=== PATIENT | female | born 1970 | race Caucasian/White ===

== ENCOUNTER → 2017-03-20 | Outpatient (CLI) | payer OTHER ==
[~2017-03-20] MED LIST: ADVAIR 2501 DISK W/D PO; ALDARA TD; AMOXICILLIN PO; AMOXICILLIN500 M1 PO; ASPIRIN81 M2 PO; ASPIRIN81 MG; ASPIRIN81 MG PO; CARVEDILOL25 MG PO; CARVEDILOL6.25 MG PO; CLOPIDOGREL75 MG PO; COMBIVENT U/D3 M2; COMBIVENT U/D3 M2 INH; COREG12.5 MG; COREG6.25 MG PO; COZAAR25 MG; DULERA 100 MCG/13 GM; FLONASE ALLERG9.9 ML; FLONASE16 GM; IMDUR-ER30 M2 PO; ISORDIL PO; LIPITOR20 MG; LIPITOR40 MG PO; NIACIN ER500 MG PO; NITROGLYCERIN0.4 MG SL; NITROSTAT0.4 MG SL; NO MEDICATIONS; OMEPRAZOLE20 M2; PHENERGAN W/CO120 ML PO; PLAVIX; PLAVIX PO; PREDNISONE PO; RANEXA500 MG PO; VICODIN 5/500 T1 TAB PO; VOLTAREN75 MG PO; ZESTRIL10 M1 PO; ZESTRIL2.5 MG PO; ZYRTEC10 M1
--- NOTE | ~2017-03-20 | US136 ---
[facility] A Service of [facility] & [facility] RADIOLOGY TEXT RESULTS PATIENT: ABHAY CANO LOCATION: CNIV : 68 UNIT #: [id number] AGE: [address]: Larry Magana MD SEX: F ORDER DR: [id number] [facility] [address] [place], [place] [address] [id number] O MR#: [id number] Acc #: [id number] NAME: ABHAY CANO : 1970 SEX: F STUDY DATE/TIME: 03/20/2017 11:41 UNIT: CNIV ROOM: STUDY DESCRIPTION: U/L [facility] Art Study [facility] Bil Attending Physician: Larry Magana M.D. Referring Physician: Larry Magana M.D. Ordering Physician: Larry Magana M.D. Primary Care Physician: Marisela Downs Aprn MEDICAL IMAGING REPORT This report is preliminary unless electronic signature is present EXAM Ankle brachial indices date of examination 03/20/2017 HISTORY Claudication. FINDINGS The right brachial artery pressure is 137. The right dorsalis pedis pressure is 147, with ankle brachial index of 1.07. The right posterior tibial pressure is 138, with an ankle brachial index of 1.01. The right digital pressure is 131, with a toe index of 0.96. The left brachial artery pressure is 127. The left dorsalis pedis pressure is 152, with an ankle to brachial index of 1.11. The left posterior tibial pressure is 144, with an ankle to brachial index of 1.05. The left digital pressure is 130, with a toe index of 0.95. Posterior tibial and dorsalis pedis waveforms are triphasic, bilaterally. Ankle waveforms demonstrate a sharp upstroke in systolic peak, bilaterally, as do digital waveforms. IMPRESSION 1. The right KIMBERLEE is 1.07, with no evidence of arterial insufficiency. 2. The left KIMBERLEE is 1.11, with no evidence of arterial insufficiency. Dictated by... Tanner Avelar M.D. THIS IS AN ELECTRONICALLY VERIFIED REPORT Tanner Avelar M.D. at 03/21/2017 7:45 AM [facility] A Service of [facility] & [facility] RADIOLOGY TEXT RESULTS PATIENT: ABHAY CANO LOCATION: [facility] : [birth year] UNIT #: [id number] AGE: [address]: Larry Magana MD SEX: F ORDER DR: LISA/reinier TD: 03/21/2017 04:42 JOB #: [id number] MEDICAL IMAGING REPORT Page 1 of 1 COPY
== END | disposition home or self-care (01) ==
LOC: CNIV 11:29
DX: I73.9 Peripheral vascular disease, unspecified (principal)
CPT/HCPCS: 93922